=== PATIENT | male | born 1990 ===

== ENCOUNTER 2023-11-07 15:45 | Outpatient (CLI) | payer OTHER, SELFPAY | END 2023-11-07 15:46 | disposition home or self-care (01) | PROVIDERS: PCP Family Medicine; Referring Provider Family Medicine; Visit Provider Family Medicine | DX: Z00.00 Encounter for general adult medical examination without abnormal findings (principal); Z78.9 Other specified health status; Z83.3 Family history of diabetes mellitus | CPT/HCPCS: 80053; 80061; 82306; 82607 ==

== ENCOUNTER 2023-11-28 16:05 | Outpatient (CLI) | payer OTHER, SELFPAY | END 2023-11-28 16:06 | disposition home or self-care (01) | LOC: NFLDREF 11-30 13:06 | PROVIDERS: PCP Family Medicine; Referring Provider Family Medicine; Visit Provider Family Medicine | DX: I49.9 Cardiac arrhythmia, unspecified (principal); R53.83 Other fatigue | CPT/HCPCS: 84443 ==

== ENCOUNTER 2023-12-22 09:26 | Outpatient (CLI) | payer OTHER, SELFPAY ==
--- NOTE | 2024-01-06 13:35 | W.PM.SLEEP ---
Sleep Study Details Details Interpreting Provider: Martita Date of Sleep Study: 12/22/23 Sleep Study Details: STUDY TYPE:? Home unattended ? BMI:? Not recorded ORDERING PROVIDER:? Paradise INDICATION:? Cardiac arrhythmia ? SLEEP SUMMARY:? 533 minutes monitored RESPIRATORY SUMMARY:? AHI 2.1, low oxygen 90, snoring 96.1% PERIODIC LIMB MOVEMENTS OF SLEEP:? Not recorded CARDIAC:? Range 46-96, mean 56.7 beats per minute IMPRESSION:? This study does not demonstrate straight clinically significant obstructive sleep apnea. If sleep disorder is strongly suspected would recommend in-lab study. RECOMMENDATION: See impression
== END 2023-12-22 09:27 | disposition home or self-care (01) ==
LOC: SLEEP 09:26
PROVIDERS: PCP Family Medicine; Visit Provider Family Medicine
DX: I49.9 Cardiac arrhythmia, unspecified (principal)
CPT/HCPCS: 95806

== ENCOUNTER 2024-01-26 08:03 | Outpatient (CLI) | payer OTHER, SELFPAY | END 2024-01-26 08:04 | disposition home or self-care (01) | LOC: RAD 08:03 | PROVIDERS: PCP Family Medicine; Visit Provider Family Medicine | DX: I49.9 Cardiac arrhythmia, unspecified (principal) | CPT/HCPCS: 93306 ==

== ENCOUNTER 2024-12-01 08:19 | Outpatient (CLI) | payer OTHER, SELFPAY | END 2024-12-01 08:20 | disposition home or self-care (01) | LOC: NFLDREF 12-06 18:17 | PROVIDERS: PCP Family Medicine; Referring Provider Family Medicine; Visit Provider Family Medicine | DX: Z00.00 Encounter for general adult medical examination without abnormal findings (principal); E78.00 Pure hypercholesterolemia, unspecified; Z78.9 Other specified health status; Z83.3 Family history of diabetes mellitus | CPT/HCPCS: 80061; 82607 ==